=== PATIENT | male | born 1935 | race Caucasian/White ===

== ENCOUNTER → 2017-09-23 10:41 | Outpatient (CLI) | payer MEDICARE, BC | END | disposition home or self-care (01) | LOC: D.US 09:00 | DX: D72.810 Lymphocytopenia (principal) ==

== ENCOUNTER → 2017-11-24 17:39 | Outpatient (CLI) | payer MEDICARE, BC ==
[2017-11-24 18:04] LABS: INR 1.41 (0.85-1.17); PROTIME 16.8 SECONDS (11.6-15.0)
== END | disposition home or self-care (01) ==
LOC: D.LABREF 17:39
PROVIDERS: Orthopaedic Surgery
DX: M00.062 Staphylococcal arthritis, left knee (principal)

== ENCOUNTER → 2017-12-01 15:29 | Outpatient (CLI) | payer MEDICARE, BC ==
[2017-12-01 19:56] LABS: INR 1.18 (0.85-1.17); PROTIME 14.6 SECONDS (11.6-15.0)
== END | disposition home or self-care (01) ==
LOC: D.LABREF 15:29
PROVIDERS: Orthopaedic Surgery
DX: M00.062 Staphylococcal arthritis, left knee (principal)

== ENCOUNTER → 2017-12-08 18:49 | Outpatient (CLI) | payer MEDICARE, BC ==
[2017-12-08 19:17] LABS: INR 1.63 (0.85-1.17); PROTIME 18.8 SECONDS (11.6-15.0)
== END | disposition home or self-care (01) ==
LOC: D.LABREF 18:49
PROVIDERS: Internal Medicine Cardiovascular Disease
DX: I48.2 Chronic atrial fibrillation (principal)

== ENCOUNTER → 2017-12-15 13:27 | Outpatient (CLI) | payer MEDICARE, BC ==
[2017-12-15 14:26] LABS: INR 2.35 (0.85-1.17); PROTIME 25.1 SECONDS (11.6-15.0)
== END | disposition home or self-care (01) ==
LOC: D.LABREF 13:27
DX: M00.062 Staphylococcal arthritis, left knee (principal)